=== PATIENT | male | born 1960 | race Caucasian/White ===

== ENCOUNTER 2021-04-29 09:55 | Day surgery (SDC) | payer OTHER ==
[~2021-04-29] VITALS: Ht 180.3 cm; Wt 136.0 kg
[~2021-04-29 09:55] MED LIST: ATENOLOL50 MG PO; BENADRYL ALLERG25 MG PO; GLYBURIDE5 MG PO; IBUPROFEN200 MG PO; JANUVIA50 MG PO; LEVOTHYROXINE100 MCG PO; LIPITOR40 MG PO; LISINOPRIL5 MG PO; METFORMIN HCL1000 MG PO; PEPCID20 MG PO
--- NOTE | 2021-04-29 13:10 | NUR ---
04/29/21 1310 Luisana Medina 1305 PATIENT ARRIVES TO PACU UNRESPONSIVE TO PAIN. ORAL AIRWAY IN PLACE. RESP EVEN AND UNLABORED, MASK AT 6LITERS.
--- NOTE | 2021-04-29 13:41 | NUR ---
PATIENT BACK TO ROOM FROM PACU ON . RECEIVED REPORT FROM FARRAH RUSSELL. PATIENT IS AWAKE. VSS. DENIES PAIN AND NAUSEA. DRESSING IS CLEAN, DRY, AND INTACT. ICE PACK IN PLACE. PROVIDED PATIENT WATER AND PATIENT DECLINES SNACK AT THIS TIME. AT BEDSIDE. CALL LIGHT WITHIN REACH.
--- NOTE | 2021-05-02 07:42 | OR ---
[facility] [address], [place] [address] Signed DATE OF OPERATION: 04/29/2021 SURGEON: Derek Lees MD PREOPERATIVE DIAGNOSIS: 3 cm subcutaneous mass anterior left shoulder. POSTOPERATIVE DIAGNOSIS: Epidermal inclusion cyst. PROCEDURE: Excision of epidermal inclusion cyst, left shoulder. ESTIMATED BLOOD LOSS: None. INDICATIONS: Ronn is a 60-year-old gentleman with a body mass index of 42. He has developed a subcutaneous mass on the distal anterior portion of his left shoulder. He said it has been there for many years. He thinks that is from carrying his golf clubs on that shoulder. To his knowledge, he has never been infected. He does not think it has never drained. It has been increasing in size and causing pain. 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 He went to his primary care provider. He was asked to see me to have it removed. I met with Ronn in the office and explained him the nature of the radial incision, required to remove the lesion for definitive diagnosis. He understands this will be a day surgery. There is risk to the surgery including, but not limited to bleeding, infection, scarring, change in contour of the skin as well as recurrent lesions in the same or other locations. He had expressed understanding and wished to proceed. DESCRIPTION OF PROCEDURE: I met with Ronn and his in our preop area. We all identified the cyst quite readily and marked that appropriately. After this, Ronn was taken into the operating room and placed in a supine position under general LMA anesthesia. He was given preoperative antibiotics along with subcutaneous heparin. SCDs were utilized. He was then prepped and draped in the usual sterile fashion. We made a radial incision over the lesion with a #15 blade knife and carried this down around the lesion bluntly and with the cautery. It was quite clear this was an epidermal inclusion cyst. The wound was then irrigated and suctioned out until clear. Local anesthetic was injected in the wound. We then closed the dermis with interrupted 3-0 subcuticular Monocryl sutures. Electronically Signed By: DEREK LEES MD 05/02/21 0742 PATIENT NAME: RONN MURPHY OPERATIVE REPORT DATE OF : 62 REPORT #: [id number] PHYSICIAN: DEREK LEES MD PCP: YASMIN CAZARES MD REPORT IS CONFIDENTIAL AND NOT TO BE RELEASED WITHOUT AUTHORIZATION [address] [address] Signed The skin edges were reapproximated with a running 5-0 fast absorbing plain gut suture. Dry gauze and tape were then applied. Ronn was then awakened from his anesthesia, extubated in the OR, and taken to recovery room in stable condition. MD FABIENNE López/KINZAL /[id number] cc: MD Yasmin López MD Copies: DEREK LEES MD, RUSSELL BARR MD ~ Electronically Signed By: DEREK LEES MD 05/02/21 0742 PATIENT NAME: RONN MURPHY OPERATIVE REPORT DATE OF : 62 REPORT #: [id number] PHYSICIAN: DEREK LEES MD PCP: YASMIN CAZARES MD REPORT IS CONFIDENTIAL AND NOT TO BE RELEASED WITHOUT AUTHORIZATION
== END 2021-04-29 14:40 | disposition home or self-care (01) ==
LOC: DS 09:55
PROVIDERS: ATTEND Colon & Rectal Surgery
PROC: 0JBF3ZZ Excision of Left Upper Arm Subcutaneous Tissue and Fascia, Percutaneous Approach (ICD-10-PCS; principal; 2021-04-29 11:30)
DX: L72.0 Epidermal cyst (principal); I10 Essential (primary) hypertension; E11.9 Type 2 diabetes mellitus without complications; E78.5 Hyperlipidemia, unspecified; E66.9 Obesity, unspecified; Z68.41 Body mass index [BMI] 40.0-44.9, adult
CPT/HCPCS: 00300; J0690; J1644; J2001; J3010